=== PATIENT | female | born 1960 | race Caucasian/White ===

== ENCOUNTER 2022-04-28 06:59 | Day surgery (SDC) | payer BC, SELFPAY ==
[2022-04-28] VITALS (12 sets, daily range): BP systolic 105–128; BP diastolic 59–77; PULSE 52–69; RESP 12–16; TEMP 36.1–36.6; O2SAT 94–100; BMI 31.3
[2022-04-28] MEDS: LACTATED RINGERS 1000 ML 1,000 ML 100 ML IV (07:42)
[2022-04-28] MEDS: SODIUM CHLORIDE 0.9 % (FLUSH) 10 ML SYRINGE IVF (07:42)
--- NOTE | 2022-04-28 08:59 | W.ANESCHARGE ---
Anesthesia Charges Start Date/Time Anesthesia Start Date: 04/28/22 Anesthesia Start Time: 08:15 Stop Date/Time Anesthesia Stop Date: 04/28/22 Anesthesia Stop Time: 09:25 Summary Emergency: No
--- NOTE | 2022-04-28 09:14 | PM.ORPRC ---
Procedure Note Date of procedure: 04/28/22 Procedure: PREOPERATIVE DIAGNOSIS: 1. Left knee medial and lateral meniscus tear POSTOPERATIVE DIAGNOSIS: 1. Left knee medial and lateral meniscus tear 2. Left knee medial plica 3. 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 Left knee arthroscopic partial medial and lateral menisectomy 2. Left knee arthroscopic limited synovectomy (medial plica) 3. Left knee chondroplasty loose chondral flaps medial femoral condyle SURGEON: Devin Vazquez M.D. QUALITY NURSE: Cody Vaca PA-C. Of note, an community program assistant was critical for this case to aid in patient positioning, knee manipulation, instrument exchange, and closure. ANESTHESIA: Spinal EBL: 2ml TOURNIQUET: 30 min at 300 torr COMPLICATIONS: None evident INDICATIONS: The patient is a pleasant 62-year-old female who has experienced left knee pain particularly with any twisting or turning. Physical exam was concerning for medial meniscus tear, this was confirmed on MRI. Additionally, attempted nonoperative management has been tried, and failed. Thus, surgery was recommended. FINDINGS: Grade 3-4 chondromalacia medial femoral condyle weight-bearing portion measuring approximately 15 by 12 mm in the A-P and M-L directions, respectively. Posterior horn complex medial meniscus tearing. Posterior root was intact. ACL and PCL were intact. Lateral compartment showed degenerative tearing of the posterior horn to midbody but also involving the far anterior horn at the meniscocapsular junction. Cystic change was seen in the anterior horn lateral meniscus. Grade 2-3 chondromalacia weight-bearing portion lateral femoral condyle. Grade 4 chondromalacia trochlear groove an area measuring approximately 12 mm in diameter. Grade 3-4 chondromalacia patella median ridge primarily. Medial plica noted. DESCRIPTION OF PROCEDURE: After a thorough discussion of risks, benefits, and alternatives, the patient was brought to the operating room and placed upon the operating table. Induction of anesthesia was undertaken as previously noted. 2g iv Ancef was administered within 1 hr of incision preoperatively. Appropriate time-out was performed identifying proper patient, site, and procedure. The left lower extremity was prepped and draped in the appropriate sterile fashion using ChloraPrep. The limb was exsanguinated and tourniquet inflated. Anterolateral and anteromedial portals were established with an 11 blade, and a diagnostic arthroscopy was performed. This identified the findings as noted above. Following the diagnostic arthroscopy, a partial medial and lateral menisectomy was performed with the combination of basket forceps and a motorized shaver. Following this, the meniscus was re-probed and found to be stable. Approximately 15% of the overall medial meniscus required resection and 10% of the lateral meniscus required resection. The basket forceps and shaver were also utilized for the medial plica excision/limited synovectomy. Finally, shaver was also utilized for chondroplasty of the minimal loose chondral flaps medial femoral condyle. Most of this was stable cartilage. At this stage, the shaver was reinserted into the suprapatellar pouch and all remaining meniscal debris was evacuated. Instruments were removed, excess fluid was drained, and closure performed with 4-0 Monocryl with Steri-Strips. Dressings were applied, the tourniquet deflated, and the patient was awoken from anesthesia and transferred to the PACU in stable condition. PLAN: 1. Weightbear as tolerated operative extremity. Crutch / walker ambulation assistance PRN. Straight leg raise to be initiated starting tomorrow by the patient. 2. Ice, acetominophen and/or ibuprofen, and Percocet for pain as needed. 3. Knee range of motion and quad sets/straight leg raise regularly 4. Follow up with PA visit in 7-10 days. for a wound check. Initiate physical therapy at that time
[2022-04-28] MEDS: ROPIVACAINE 0.5% 30 ML 150 MG INJECTION (09:15)
--- NOTE | 2022-04-28 09:23 | W.ANESCHARGE ---
Anesthesia Charges Start Date/Time Anesthesia Start Date: 04/28/22 Anesthesia Start Time: 08:15 Stop Date/Time Anesthesia Stop Date: 04/28/22 Anesthesia Stop Time: 09:25 Summary Emergency: No
--- NOTE | 2022-04-28 09:31 | W.ANESCHARGE ---
Anesthesia Charges Start Date/Time Anesthesia Start Date: 04/28/22 Anesthesia Start Time: 08:15 Stop Date/Time Anesthesia Stop Date: 04/28/22 Anesthesia Stop Time: 09:25 Summary Emergency: No
[2022-04-28] MEDS: ONDANSETRON 2 MG/ML inj 4 MG IVP (09:43)
--- NOTE | 2022-04-28 10:06 | SUR.PHASEI ---
patient met anesthesia criteria for discharge
== END 2022-04-28 11:00 | disposition home or self-care (01) ==
PROVIDERS: PCP Family Medicine; Visit Provider Orthopaedic Surgery Sports Medicine
PROC: (CPT 29870; principal; 2022-04-28 08:15)
DX: M23.252 Derangement of posterior horn of lateral meniscus due to old tear or injury, left knee (principal); M23.222 Derangement of posterior horn of medial meniscus due to old tear or injury, left knee; M23.242 Derangement of anterior horn of lateral meniscus due to old tear or injury, left knee; M94.262 Chondromalacia, left knee; M67.52 Plica syndrome, left knee
CPT/HCPCS: 29880; 29875; 1400; J2250; J2400; J2405; J2704; J2795; J3010; J7120

== ENCOUNTER 2024-06-13 20:57 | Emergency (ER) | payer OTHER, SELFPAY ==
[2024-06-13 21:00] VITALS: BP 118/75; PULSE 71; RESP 18; TEMP 36.3; O2SAT 96; BMI 32.8
--- NOTE | 2024-06-13 21:13 | CRLHL7_ITS ---
For Patients: As a result of the Cures Act, medical imaging exams and procedure reports are released immediately into your electronic medical record. You may view this report before your referring provider. If you have questions, please contact your health care provider. INDICATION: FALL, RT SIDED PAIN. TECHNIQUE: CT pelvis without contrast. COMPARISON: 05/29/2021. FINDINGS: Bones: Alignment is normal. No sign of acute fracture. No suspicious bony lesions. Joints: Unremarkable. Soft tissues: Subcutaneous fat stranding in the right proximal thigh..Right inguinal fat containing hernia. IMPRESSION: Right proximal thigh/buttock subcutaneous contusion. No underlying fractures. Please note that all CT scans at this facility use dose modulation, iterative reconstruction, and/or weight-based dosing when appropriate to reduce radiation dose to as low as reasonably achievable. Dictated by Leeanna Mckeon MD @ 06/13/2024 10:04:05 PM (Electronically Signed)
[2024-06-13] MEDS: KETOROLAC 30 MG/ML inj 60 MG IM (21:50)
--- NOTE | 2024-06-13 21:53 | ED_ITS ---
HPI - General Adult General Chief complaint: Fall/Minor Trauma Stated complaint: Fall last week on hip Time Seen by Provider: 06/13/24 21:05 Source: patient Mode of arrival: ambulatory Limitations: no limitations History of Present Illness HPI narrative: 64-year-old female presenting with right-sided hip pain. She states that 6 days ago she tripped and fell onto her right hip and buttocks. She has been having p ain ever since. She states that the pain is gotten worse over the last 2 days or so. It hurts to walk and sit. She states that she had a terrible night last night she was so uncomfortable. She feels unsteady on her feet because of this. She denies any footdrop or weakness of the right extremity. She has no pain at the ankle or the knee. Pain is located in the right buttocks and right outer hip area. She has no pain down the center of her back. She has no discomfort with urination or bowel movements. She has not lost control of bladder or bowels. She denies any fevers or chills. No nausea or vomiting. She has been able to do her activities of daily living but it has been difficult. Patient is not on any blood thinners. When she fell she did not hit her head or lose consciousness. Related Data Home Medications ?Medication ?Instructions ?Recorded ?Confirmed levothyroxine 150 mcg tablet 150 mcg PO QDAY 03/09/22 05/08/23 rosuvastatin 20 mg tablet 20 mg PO .hs 03/09/22 05/08/23 sertraline 100 mg tablet 100 mg PO QDAY 03/09/22 05/08/23 triamterene 37.5 1 tab PO QDAY 03/09/22 05/08/23 mg-hydrochlorothiazide 25 mg tablet liraglutide 0.6 mg/0.1 mL (18 mg/3 mg subcut 05/08/23 05/08/23 mL) subcutaneous pen injector (Victoza 2-Kedar) pen needle, diabetic 32 gauge x #1,200 ea 05/08/23 05/08/23 (BD Yanet 2nd Gen Pen Needle) Allergies Allergy/AdvReac Type Severity Reaction Status Date / Time hydrocodone Allergy Mild Verified 05/06/22 08:54 azithromycin Allergy Unknown Unknown Verified 05/06/22 08:54 Review of Systems Status of ROS: Reports: 10 or more systems reviewed and unremarkable except as noted in History and below [facility] Medical History Bronchitis ?J40 - Bronchitis, not specified as acute or chronic (ICD-10) DVT (deep venous thrombosis) (~2008) ?I82.409 - Acute embolism and thrombosis of unspecified deep veins of unspecified lower extremity (ICD-10) Anxiety ?F41.9 - Anxiety disorder, unspecified (ICD-10) Hypothyroidism ?E03.9 - Hypothyroidism, unspecified (ICD-10) Renal colic on right side ?N23 - Unspecified renal colic (ICD-10) Insect bite ?W57.XXXA - Bitten or stung by nonvenomous insect and other nonvenomous arthropods, initial encounter (ICD-10) Fracture of radius ?S52.90XA - Unspecified fracture of unspecified forearm, initial encounter for closed fracture (ICD-10) Chest wall pain ?R07.89 - Other chest pain (ICD-10) Surgical History Hx of decompression of ulnar nerve ?Z98.890 - Other specified postprocedural states (ICD-10) History of bilateral carpal tunnel release ?Z98.890 - Other specified postprocedural states (ICD-10) History of repair of left rotator cuff ?Z98.890 - Other specified postprocedural states (ICD-10) S/P cervical spinal fusion ?Z98.1 - Arthrodesis status (ICD-10) Family History Mother Heart problem Osteoarthritis Father Heart problem Prostate cancer Leukemia Social History Smoking Status: Never smoker Do you use any of these nicotine containing products: None Second hand tobacco smoke exposure: No How often do you have a drink containing alcohol: never AUDIT-C Alcohol total score: 0 Non-prescribed substance use: denies use Are you now , , , , never or living with a partner: Social isolation score (0-1 are the most socially isolated patients): 1 Exam Narrative: Exam Narrative: Well-nourished well-developed patient in no acute distress. Alert and oriented. Answers questions appropriately. Mood and affect are appropriate. Thoughts are goal oriented and rational. No tangential or magical thinking noted. Patient speaks in full sentences without needing to catch her breath. HEENT: Normocephalic atraumatic. Pupils are equally round reactive to light. Extraocular muscles are intact. Conjunctivae are moist without any icterus noted. Moist mucous membranes. Abdomen: Soft and nontender nondistended with normal bowel sounds. No guarding or rebound. Extremities: Bilateral lower extremities are without edema. No bruising noted. Skin: Well perfused. Back: Normal appearance. She has no tenderness to palpation of the thoracic or lumbar spine. She has tenderness with palpation over the right buttocks area and over the SI joint. She has no tenderness with palpation of the femur. Her gait is normal. Const: Vital Signs, click to edit/add: Vital Signs - 24 hr 06/13/24 21:00 Temperature 97.3 F L Pulse Rate [Left P ulse Oximeter] 71 Respiratory Rate 18 Blood Pressure [Ri ght Upper Arm] 118/75 Pulse Oximetry 96 Oxygen Delivery Me thod Room Air Course Course ED Course: Given the history of recent trauma and worsening pain around the pelvic region we did proceed with a pelvis CT. CT shows a contusion of the right thigh. Also shows a small fat containing right-sided inguinal hernia. Vital Signs Vital signs: Initial Vital Signs Temperature 97.3 F L 06/13/24 21:00 Temperature Source Temporal Artery Scan 06/13/24 21:00 Pulse Rate 71 06/13/24 21:00 Respiratory Rate 18 06/13/24 21:00 Blood Pressure 118/75 06/13/24 21:00 Blood Pressure Mean 89 06/13/24 21:00 Blood Pressure Position Sitting 06/13/24 21:00 Pulse Oximetry 96 06/13/24 21:00 Oxygen Delivery Method Room Air 06/13/24 21:00 Vital Signs Temperature 97.3 F L 06/13/24 21:00 Pulse Rate 71 06/13/24 21:00 Respiratory Rate 18 06/13/24 21:00 Blood Pressure 118/75 06/13/24 21:00 Pulse Oximetry 96 06/13/24 21:00 Oxygen Delivery Method Room Air 06/13/24 21:00 Temperature 97.3 F L 06/13/24 21:00 Pulse Rate 71 06/13/24 21:00 Respiratory Rate 18 06/13/24 21:00 Blood Pressure 118/75 06/13/24 21:00 Pulse Oximetry 96 06/13/24 21:00 Oxygen Delivery Method Room Air 06/13/24 21:00 Medications Administered Medications: Generic Name Dose Route Start Last Admin Trade Name Mary PRN Reason Stop Dose Admin Ketorolac Tromethamine 60 mg 06/13/24 21:39 06/13/24 21:50 Ketorolac 30 Mg/Ml Inj IM 06/13/24 21:40 60 mg ONCE ONE Administration Medical Decision Making MDM Narrative Medical decision making narrative: Right-sided contusion of right thigh. We discussed NSAIDs, heat, reasons for follow-up. Imaging Data Pelvis CT: Attestation: I have reviewed the pertinent imaging results. Radiologist's impression: CT pelvis without contrast. COMPARISON: 05/29/2021. FINDINGS: Bones: Alignment is normal. No sign of acute fracture. No suspicious bony lesions. Joints: Unremarkable. Soft tissues: Subcutaneous fat stranding in the right proximal thigh..Right inguinal fat containing hernia. IMPRESSION: Right proximal thigh/buttock subcutaneous contusion. No underlying fractures. Discharge Plan Discharge Clinical Impression: Contusion of hip and thigh Instructions: Contusion in Adults (ED) Additional Instructions: Your CT scan did not show any evidence of fractures. It does show that the right thigh and buttock area is healing from direct trauma. Recommend ibuprofen as needed/as directed. Recommend heat to the area as needed. Do not apply heat directly to skin and do not heat for more than 20 minutes at a time. Recommend gentle [id number] exercises daily and stretching. Follow-up with your primary care provider if you feel that you are not improving over the next week. Prescriptions: No Action rosuvastatin 20 mg tablet 20 mg PO .hs Patient Comments: TAKE 1 TABLET BY MOUTH AT BEDTIME triamterene-hydrochlorothiazid 37.5-25 mg tablet 1 tab PO QDAY Patient Comments: TAKE 1 TABLET BY MOUTH EVERY DAY IN THE MORNING sertraline 100 mg tablet 100 mg PO QDAY levothyroxine 150 mcg tablet 150 mcg PO QDAY Victoza 2-Kedar 0.6 mg/0.1 mL (18 mg/3 mL) pen injector subcut (DME) pen needle, diabetic [BD Yanet 2nd Gen Pen Needle] 32 gauge x 5/32 needle See Rx Instructions .ROUTE .MEDSUPPLY Qty: 1200 Patient Comments: [NO ORIGINAL SIG] Rx Instructions: As directed Follow Up/Referrals: Jessica Acosta MD [Primary Care Provider] - Stand Alone Forms: MyHealth Info Instructions
== END 2024-06-13 22:17 | disposition home or self-care (01) ==
LOC: ED 21:29
PROVIDERS: Emergency Provider Family Medicine; PCP Family Medicine
DX: S70.01XA Contusion of right hip, initial encounter (principal); S70.11XA Contusion of right thigh, initial encounter; W18.30XA Fall on same level, unspecified, initial encounter
CPT/HCPCS: 72192; 96372; 99283; 99284; J1885